=== PATIENT | male | born 1940 | race Caucasian/White ===

== ENCOUNTER 2020-07-26 08:37 | Inpatient (IN) | payer MEDICARE, OTHER ==
[~2020-07-26] VITALS: Ht 170.2 cm; Wt 84.4 kg
[2020-07-26] MEDS ORDERED: MAGNESIUM HYDROXIDE 30 ML UDC PO PRN (14:30)
[2020-07-26] MEDS ORDERED: MAG HYDROX/AL HYDROX/SIMETH 30 ML UDC PO PRN (14:30)
[2020-07-26] MEDS ORDERED: ACETAMINOPHEN 325 MG TABLET PO PRN (14:30)
[2020-07-26] MEDS ORDERED: MULT-447 PO (14:43)
[2020-07-26] MEDS ORDERED: METO25TA3 PO (14:43)
[2020-07-26] MEDS ORDERED: FOLI0.4T6 PO (14:43)
[2020-07-26] MEDS ORDERED: VALS320T16 PO (14:43)
[2020-07-26] MEDS ORDERED: THIA100T88 PO (14:43)
[2020-07-26] MEDS ORDERED: SIMV-49 PO (14:43)
[2020-07-26] MEDS ORDERED: OMEP20CA15 PO (14:43)
[2020-07-26 15:48] VITALS: BP 146/79
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
[2020-07-26 16:00] VITALS: BP 146/79
[2020-07-26] MEDS ORDERED: BLOOD SUGAR DIAGNOSTIC 1 EACH STRIP IN ONE (16:30)
[2020-07-26] MEDS: SIMVASTATIN 20 MG TABLET PO SCH (17:13)
[2020-07-26 20:04] VITALS: BP 138/70
[2020-07-27 07:23] LABS: CHOLESTEROL 132 mg/dL (<200); HDL CHOLESTEROL 32 mg/dL (40-60); LDL 82 mg/dL (0-99); TRIGLYCERIDES 107 mg/dL (30-150)
[2020-07-27 07:29] LABS: ALBUMIN 3.1 g/dL (3.4-5.0); BILIRUBIN,TOTAL 0.6 mg/dL (0.2-1.0); CALCIUM, SERUM 9.4 mg/dL (8.5-10.1); CREATININE 0.9 mg/dL (0.6-1.3); POTASSIUM 3.6 mmol/L (3.5-5.1); TOTAL PROTEIN, SERUM 6.3 g/dL (6.4-8.2)
[2020-07-27 08:00] VITALS: BP 135/70
[2020-07-27] MEDS: PANTOPRAZOLE 40 MG TABLET.DR PO SCH (08:51)
[2020-07-27] MEDS: FOLIC ACID 1 MG TABLET PO SCH (08:51)
[2020-07-27] MEDS: THIAMINE HCL 100 MG TABLET PO SCH (08:51)
[2020-07-27] MEDS: MULTIVIT W/MINERALS 1 TAB TABLET PO SCH (08:51)
[2020-07-27] MEDS: METOPROLOL SUCCINATE 25 MG TAB.SR.24H PO SCH (08:52)
[2020-07-27] MEDS: VALSARTAN 80 MG TABLET PO SCH (08:53)
[2020-07-27 16:00] VITALS: BP 123/61
--- NOTE | 2020-07-27 16:25 | NUR ---
Family Contact: SW called the pts daughterSailaja ([phone]), but was informed that the SW needed a meeting code to get through.
--- NOTE | 2020-07-27 16:34 | NUR ---
Initial Discharge Plan: Pt currently resides in his apartment alone located at [address] [place] [address], [address] [facility], [place] [address]; ([phone]). Per pt, he would like to return home. SW will work with the pt and the pts MD regarding appropriate discharge planning. SW will form a safe and proper discharge.
[2020-07-27] MEDS: SIMVASTATIN 20 MG TABLET PO SCH (17:00)
--- NOTE | 2020-07-27 17:16 | NUR ---
RN NOTES PATIENT ACCIDENTALLY DROPPED ZOC[employer] TO THE FLOOR. PULLED ANOTHER SET FROM [employer].
--- NOTE | 2020-07-27 17:59 | NUR ---
RN NOTES PATIENT RESTING COMFORTABLY AFTER EATING DINNER. CALM AND COOPERATIVE, COMPLIANT WITH ALL MEDICATIONS FOR DAYSHIFT. NO OTHER SIGNIFICANT CHANGE IN CONDITION. ALL NEEDS MET AT THIS TIME
[2020-07-27 20:39] VITALS: BP 114/49
[2020-07-27] MEDS: SERTRALINE HCL 50 MG TABLET PO SCH (22:54)
[2020-07-28 08:00] VITALS: BP 149/74
[2020-07-28] MEDS: THIAMINE HCL 100 MG TABLET PO SCH (08:38)
[2020-07-28] MEDS: FOLIC ACID 1 MG TABLET PO SCH (08:38)
[2020-07-28] MEDS: PANTOPRAZOLE 40 MG TABLET.DR PO SCH (08:38)
[2020-07-28] MEDS: MULTIVIT W/MINERALS 1 TAB TABLET PO SCH (08:38)
[2020-07-28] MEDS: SERTRALINE HCL 50 MG TABLET PO SCH (08:38)
[2020-07-28] MEDS: METOPROLOL SUCCINATE 25 MG TAB.SR.24H PO SCH (08:38)
[2020-07-28] MEDS: VALSARTAN 80 MG TABLET PO SCH (08:39)
[2020-07-28 16:00] VITALS: BP 148/73
[2020-07-28] MEDS: SIMVASTATIN 20 MG TABLET PO SCH (17:31)
[2020-07-29 03:53] VITALS: BP 107/58
[2020-07-29 04:34] VITALS: BP 107/58
[2020-07-29 04:35] VITALS: BP 107/58
[2020-07-29 08:00] VITALS: BP 156/74
[2020-07-29] MEDS: MULTIVIT W/MINERALS 1 TAB TABLET PO SCH (09:09)
[2020-07-29] MEDS: VALSARTAN 80 MG TABLET PO SCH (09:09)
[2020-07-29] MEDS: METOPROLOL SUCCINATE 25 MG TAB.SR.24H PO SCH (09:09)
[2020-07-29] MEDS: THIAMINE HCL 100 MG TABLET PO SCH (09:09)
[2020-07-29] MEDS: FOLIC ACID 1 MG TABLET PO SCH (09:09)
[2020-07-29] MEDS: SERTRALINE HCL 50 MG TABLET PO SCH (09:10)
[2020-07-29] MEDS: PANTOPRAZOLE 40 MG TABLET.DR PO SCH (09:10)
--- NOTE | 2020-07-29 10:51 | NUR ---
Family Contact: JUSTIN called the pts daughter, Sailaja ([phone]), and informed her about the pts current conditions. JUSTIN stated that the discharge plan for the pt is a [facility] facility and she stated that she agrees with this plan. JUSTIN stated that she will try to have one secured by Monday and will call her when there is an update.
[2020-07-29 16:00] VITALS: BP 102/59
--- NOTE | 2020-07-29 16:34 | NUR ---
WALKING ABOUT UNIT,PLEASANT,NO BEHAVIOR ISSUES.
[2020-07-29] MEDS: SIMVASTATIN 20 MG TABLET PO SCH (17:27)
[2020-07-29 20:00] VITALS: BP 134/72
[2020-07-30 08:00] VITALS: BP 142/82
[2020-07-30] MEDS: THIAMINE HCL 100 MG TABLET PO SCH (08:52)
[2020-07-30] MEDS: PANTOPRAZOLE 40 MG TABLET.DR PO SCH (08:52)
[2020-07-30] MEDS: FOLIC ACID 1 MG TABLET PO SCH (08:52)
[2020-07-30] MEDS: MULTIVIT W/MINERALS 1 TAB TABLET PO SCH (08:52)
[2020-07-30] MEDS: VALSARTAN 80 MG TABLET PO SCH (08:53)
[2020-07-30] MEDS: METOPROLOL SUCCINATE 25 MG TAB.SR.24H PO SCH (08:53)
[2020-07-30] MEDS: SERTRALINE HCL 50 MG TABLET PO SCH (08:53)
--- NOTE | 2020-07-30 14:38 | NUR ---
Probable Cause Hearing: Pts [phone] hold was upheld for grave disability.
[2020-07-30 16:00] VITALS: BP 123/61
[2020-07-30] MEDS: SIMVASTATIN 20 MG TABLET PO SCH (18:35)
[2020-07-30 20:32] VITALS: BP 124/61
[2020-07-31] MEDS: VALSARTAN 80 MG TABLET PO SCH (08:12)
[2020-07-31] MEDS: PANTOPRAZOLE 40 MG TABLET.DR PO SCH (08:12)
[2020-07-31] MEDS: METOPROLOL SUCCINATE 25 MG TAB.SR.24H PO SCH (08:12)
[2020-07-31] MEDS: FOLIC ACID 1 MG TABLET PO SCH (08:12)
[2020-07-31] MEDS: MULTIVIT W/MINERALS 1 TAB TABLET PO SCH (08:12)
[2020-07-31] MEDS: THIAMINE HCL 100 MG TABLET PO SCH (08:12)
[2020-07-31] MEDS: SERTRALINE HCL 50 MG TABLET PO SCH (08:14)
[2020-07-31 08:45] VITALS: BP 154/69
--- NOTE | 2020-07-31 09:10 | NUR ---
SNF Referral: SW faxed a SNF referral to the following two facilities: [facility] with attn to [place] to the fax number: [phone] [facility] with attn to April to the fax number: [phone]
--- NOTE | 2020-07-31 09:19 | NUR ---
Family Contact: SW called the pts daughter, Sailaja ([phone]), and informed her of the probable cause hearing results the previous day and informed her of the placement options that are being secured. JUSTIN informed her that she will call back once there is information on an accepting facility.
--- NOTE | 2020-07-31 13:24 | NUR ---
John Murguia NP came in the unit and checked the advance directives and said it's DNR/DNI and gave verbal order to put the order. Addendum: 07/31/20 at 1325 by SHERI BLANTON RN not for this pt.
[2020-07-31 16:09] VITALS: BP 118/70
[2020-07-31] MEDS: SIMVASTATIN 20 MG TABLET PO SCH (17:04)
[2020-07-31 20:02] VITALS: BP 146/82
[2020-07-31 20:06] VITALS: BP 146/82
--- NOTE | 2020-07-31 23:50 | NUR ---
RN NOTE PATIENT NOTED TO BE CALM, COOPERATIVE & RELAXED. SLEEPING AT THIS TIME. NO BEHAVIOR EPISODES NOTED. WILL CONTINUE TO MONITOR.
[2020-08-01 08:30] VITALS: BP 120/71
[2020-08-01] MEDS: THIAMINE HCL 100 MG TABLET PO SCH (08:30)
[2020-08-01] MEDS: MULTIVIT W/MINERALS 1 TAB TABLET PO SCH (08:30)
[2020-08-01] MEDS: FOLIC ACID 1 MG TABLET PO SCH (08:30)
[2020-08-01] MEDS: PANTOPRAZOLE 40 MG TABLET.DR PO SCH (08:30)
[2020-08-01] MEDS: METOPROLOL SUCCINATE 25 MG TAB.SR.24H PO SCH (08:32)
[2020-08-01] MEDS: SERTRALINE HCL 50 MG TABLET PO SCH (08:32)
[2020-08-01] MEDS: VALSARTAN 80 MG TABLET PO SCH (08:33)
[2020-08-01 16:00] VITALS: BP 118/61
[2020-08-01] MEDS: SIMVASTATIN 20 MG TABLET PO SCH (17:27)
[2020-08-01 20:00] VITALS: BP 122/57
[2020-08-01 20:38] VITALS: BP 122/57
[2020-08-02 08:00] VITALS: BP 138/66
[2020-08-02] MEDS: METOPROLOL SUCCINATE 25 MG TAB.SR.24H PO SCH (09:30)
[2020-08-02] MEDS: VALSARTAN 80 MG TABLET PO SCH (09:30)
[2020-08-02] MEDS: THIAMINE HCL 100 MG TABLET PO SCH (09:30)
[2020-08-02] MEDS: FOLIC ACID 1 MG TABLET PO SCH (09:30)
[2020-08-02] MEDS: PANTOPRAZOLE 40 MG TABLET.DR PO SCH (09:30)
[2020-08-02] MEDS: MULTIVIT W/MINERALS 1 TAB TABLET PO SCH (09:31)
[2020-08-02] MEDS: SERTRALINE HCL 50 MG TABLET PO SCH (09:31)
[2020-08-02 16:00] VITALS: BP 123/67
[2020-08-02] MEDS: SIMVASTATIN 20 MG TABLET PO SCH (17:37)
[2020-08-02 21:27] VITALS: BP 129/62
--- NOTE | 2020-08-03 00:43 | NUR ---
Patient refused skin assessment.
[2020-08-03 08:00] VITALS: BP 125/85
[2020-08-03] MEDS: METOPROLOL SUCCINATE 25 MG TAB.SR.24H PO SCH (08:52)
[2020-08-03] MEDS: PANTOPRAZOLE 40 MG TABLET.DR PO SCH (08:52)
[2020-08-03] MEDS: SERTRALINE HCL 50 MG TABLET PO SCH (08:52)
[2020-08-03] MEDS: FOLIC ACID 1 MG TABLET PO SCH (08:53)
[2020-08-03] MEDS: VALSARTAN 80 MG TABLET PO SCH (08:53)
[2020-08-03] MEDS: MULTIVIT W/MINERALS 1 TAB TABLET PO SCH (08:53)
[2020-08-03] MEDS: THIAMINE HCL 100 MG TABLET PO SCH (08:53)
[2020-08-03 16:00] VITALS: BP 123/57
--- NOTE | 2020-08-03 16:39 | NUR ---
Individual Therapy: SW met with pt. in activity room to conduct individual therapy regarding Positive Coping Mechanisms. Patient stated during stressful situations he tries not to "let it get that far". SW educated pt. regarding postiive coping mechanisms and patient was receptive. SW will continue to provide individual therapy as needed.
[2020-08-03] MEDS: SIMVASTATIN 20 MG TABLET PO SCH (16:48)
[2020-08-03 20:27] VITALS: BP 131/60
[2020-08-04 08:00] VITALS: BP 136/49
[2020-08-04] MEDS: PANTOPRAZOLE 40 MG TABLET.DR PO SCH (08:41)
[2020-08-04] MEDS: VALSARTAN 80 MG TABLET PO SCH (08:41)
[2020-08-04] MEDS: THIAMINE HCL 100 MG TABLET PO SCH (08:41)
[2020-08-04] MEDS: METOPROLOL SUCCINATE 25 MG TAB.SR.24H PO SCH (08:42)
[2020-08-04] MEDS: SERTRALINE HCL 50 MG TABLET PO SCH (08:42)
[2020-08-04] MEDS: MULTIVIT W/MINERALS 1 TAB TABLET PO SCH (08:42)
[2020-08-04] MEDS: FOLIC ACID 1 MG TABLET PO SCH (08:42)
[2020-08-04 16:00] VITALS: BP 140/57
[2020-08-04] MEDS: SIMVASTATIN 20 MG TABLET PO SCH (17:05)
[2020-08-04 20:11] VITALS: BP 129/58
[2020-08-05 08:00] VITALS: BP 125/68
[2020-08-05] MEDS: PANTOPRAZOLE 40 MG TABLET.DR PO SCH (08:02)
[2020-08-05] MEDS: MULTIVIT W/MINERALS 1 TAB TABLET PO SCH (08:17)
[2020-08-05] MEDS: THIAMINE HCL 100 MG TABLET PO SCH (08:17)
[2020-08-05] MEDS: SERTRALINE HCL 50 MG TABLET PO SCH (08:17)
[2020-08-05] MEDS: FOLIC ACID 1 MG TABLET PO SCH (08:17)
[2020-08-05] MEDS: METOPROLOL SUCCINATE 25 MG TAB.SR.24H PO SCH (08:18)
[2020-08-05] MEDS: VALSARTAN 80 MG TABLET PO SCH (08:19)
[2020-08-05 16:00] VITALS: BP 148/60
[2020-08-05] MEDS: SIMVASTATIN 20 MG TABLET PO SCH (17:12)
[2020-08-05 20:42] VITALS: BP 140/74
[2020-08-05] MEDS: TEMAZEPAM 7.5 MG CAPSULE PO PRN (21:46)
[2020-08-06 08:00] VITALS: BP 139/65
[2020-08-06] MEDS: PANTOPRAZOLE 40 MG TABLET.DR PO SCH (08:13)
[2020-08-06] MEDS: VALSARTAN 80 MG TABLET PO SCH (08:19)
[2020-08-06] MEDS: FOLIC ACID 1 MG TABLET PO SCH (08:20)
[2020-08-06] MEDS: MULTIVIT W/MINERALS 1 TAB TABLET PO SCH (08:20)
[2020-08-06] MEDS: THIAMINE HCL 100 MG TABLET PO SCH (08:20)
[2020-08-06] MEDS: SERTRALINE HCL 50 MG TABLET PO SCH (08:20)
[2020-08-06] MEDS: METOPROLOL SUCCINATE 25 MG TAB.SR.24H PO SCH (08:21)
[2020-08-06 16:00] VITALS: BP 126/60
[2020-08-06] MEDS: SIMVASTATIN 20 MG TABLET PO SCH (17:04)
[2020-08-06] MEDS: LORAZEPAM 0.5 MG TABLET PO PRN (19:58)
[2020-08-06 20:04] VITALS: BP 116/52
[2020-08-06] MEDS: TEMAZEPAM 7.5 MG CAPSULE PO PRN (21:42)
[2020-08-07 08:00] VITALS: BP 125/64
[2020-08-07] MEDS: THIAMINE HCL 100 MG TABLET PO SCH (08:14)
[2020-08-07] MEDS: PANTOPRAZOLE 40 MG TABLET.DR PO SCH (08:14)
[2020-08-07] MEDS: MULTIVIT W/MINERALS 1 TAB TABLET PO SCH (08:14)
[2020-08-07] MEDS: FOLIC ACID 1 MG TABLET PO SCH (08:15)
[2020-08-07] MEDS: METOPROLOL SUCCINATE 25 MG TAB.SR.24H PO SCH (08:15)
[2020-08-07] MEDS: SERTRALINE HCL 50 MG TABLET PO SCH (08:15)
[2020-08-07] MEDS: VALSARTAN 80 MG TABLET PO SCH (08:16)
--- NOTE | 2020-08-07 14:30 | NUR ---
Phone call: JUSTIN spoke to [facility] (Admissions -[phone]) SNF via phone at 1430 pm verifying pt's acceptance at facility once medically discharged from the hospital . Per [place] pt is accepted at the the facility.
[2020-08-07 16:00] VITALS: BP 118/65
[2020-08-07] MEDS: SIMVASTATIN 20 MG TABLET PO SCH (17:23)
[2020-08-07 20:18] VITALS: BP 125/67
[2020-08-07] MEDS: TEMAZEPAM 7.5 MG CAPSULE PO PRN (21:09)
--- NOTE | 2020-08-07 21:09 | NUR ---
NURSES NOTES: PATIENT REQUESTED FOR SLEEPING MEDICATION. RESTORIL GIVEN ORDERED. WILL MONITOR PATIENT AND HIS SLEEPING PATTERN.
[2020-08-08 08:00] VITALS: BP 130/73
[2020-08-08] MEDS: PANTOPRAZOLE 40 MG TABLET.DR PO SCH (08:20)
[2020-08-08] MEDS: VALSARTAN 80 MG TABLET PO SCH (08:21)
[2020-08-08] MEDS: MULTIVIT W/MINERALS 1 TAB TABLET PO SCH (08:21)
[2020-08-08] MEDS: THIAMINE HCL 100 MG TABLET PO SCH (08:21)
[2020-08-08] MEDS: FOLIC ACID 1 MG TABLET PO SCH (08:21)
[2020-08-08] MEDS: SERTRALINE HCL 50 MG TABLET PO SCH (08:21)
[2020-08-08] MEDS: METOPROLOL SUCCINATE 25 MG TAB.SR.24H PO SCH (08:22)
[2020-08-08 16:00] VITALS: BP 113/59
[2020-08-08] MEDS: SIMVASTATIN 20 MG TABLET PO SCH (18:18)
[2020-08-08 20:03] VITALS: BP 105/59
[2020-08-09] MEDS: PANTOPRAZOLE 40 MG TABLET.DR PO SCH (07:44)
[2020-08-09 08:00] VITALS: BP 128/65
[2020-08-09] MEDS: MULTIVIT W/MINERALS 1 TAB TABLET PO SCH (08:40)
[2020-08-09] MEDS: SERTRALINE HCL 50 MG TABLET PO SCH (08:41)
[2020-08-09] MEDS: VALSARTAN 80 MG TABLET PO SCH (08:42)
[2020-08-09] MEDS: THIAMINE HCL 100 MG TABLET PO SCH (08:42)
[2020-08-09] MEDS: METOPROLOL SUCCINATE 25 MG TAB.SR.24H PO SCH (08:42)
[2020-08-09] MEDS: FOLIC ACID 1 MG TABLET PO SCH (08:43)
[2020-08-09 16:00] VITALS: BP 109/54
[2020-08-09] MEDS: SIMVASTATIN 20 MG TABLET PO SCH (17:01)
[2020-08-09 20:51] VITALS: BP 127/65
[2020-08-09] MEDS: TEMAZEPAM 7.5 MG CAPSULE PO PRN (21:24)
--- NOTE | 2020-08-09 21:24 | NUR ---
Pt c/o insomnia. Least restrictive measures ineffective. Restoril 15 mg po given as ordered. Will continue to monitor.
--- NOTE | 2020-08-09 22:28 | NUR ---
Post 1 hr Restoril effective. Pt asleep in bed easy to arouse.
--- NOTE | 2020-08-10 07:04 | NUR ---
GPS RN OPENING NOTES RECEIVED PATIENT AWAKE IN BED, AOX3-4. NO SOB NOTED. NO S/S OF DISTRESS.BREATHING UNLABORED. PT DENIES SI/HI. PT REMAINS CALM AND COOPERATIVE. BED IN LOWEST LOCKED POSITION, HOB ELEVATED, SIDE RAILS UPX2, CALL LIGHT AND TABLE WITHIN REACH. WILL CONTINUE TO MONITOR Q 15 MIN FOR SAFETY, MOOD & BEHAVIOR
[2020-08-10 08:00] VITALS: BP 144/75
[2020-08-10] MEDS: SERTRALINE HCL 50 MG TABLET PO SCH (08:56)
[2020-08-10] MEDS: VALSARTAN 80 MG TABLET PO SCH (08:57)
[2020-08-10] MEDS: MULTIVIT W/MINERALS 1 TAB TABLET PO SCH (08:57)
[2020-08-10] MEDS: METOPROLOL SUCCINATE 25 MG TAB.SR.24H PO SCH (08:58)
[2020-08-10] MEDS: PANTOPRAZOLE 40 MG TABLET.DR PO SCH (08:59)
[2020-08-10] MEDS: THIAMINE HCL 100 MG TABLET PO SCH (08:59)
[2020-08-10] MEDS: FOLIC ACID 1 MG TABLET PO SCH (09:00)
--- NOTE | 2020-08-10 14:49 | NUR ---
Family Contact: SW called the pts daughter, Sailaja ([phone]), and discussed the pts current treatment plan and stated that the pt was accepted to a SNF but there is no discharge date at this time. Pts daughter stated that she is going away for a bit and that she can be reached at her partner's phone, Alexander ([phone]), because he has better entry level receptionist. SW stated that she will keep them updated.
[2020-08-10 16:00] VITALS: BP 131/61
--- NOTE | 2020-08-10 16:05 | NUR ---
SNF Contact: faxed updated notes to [facility] with attn to [place] to the fax number: [phone]
[2020-08-10] MEDS: SIMVASTATIN 20 MG TABLET PO SCH (17:02)
--- NOTE | 2020-08-10 18:57 | NUR ---
GPS RN CLOSING NOTES PT IN DINNING ROOM WATCHING TV AT THIS TIME. PT REMAINED STABLE THROUGH OUT SHIFT. ALL CARE, NEEDS, MEDICATIONS AND TREATMENT ADMINISTERED ANTICIPATED PER ORDER. WILL ENDORSE TO TANK FILLER NURSE TO CONTINUE TO MONITOR Q 15 MIN FOR SAFETY, MOOD & BEHAVIOR
[2020-08-10 21:31] VITALS: BP 126/61
[2020-08-10] MEDS: TEMAZEPAM 7.5 MG CAPSULE PO PRN (21:37)
[2020-08-10] MEDS: LORAZEPAM 0.5 MG TABLET PO PRN (21:37)
[2020-08-11 08:00] VITALS: BP 129/68
[2020-08-11] MEDS: FOLIC ACID 1 MG TABLET PO SCH (08:35)
[2020-08-11] MEDS: PANTOPRAZOLE 40 MG TABLET.DR PO SCH (08:35)
[2020-08-11] MEDS: SERTRALINE HCL 50 MG TABLET PO SCH (08:36)
[2020-08-11] MEDS: THIAMINE HCL 100 MG TABLET PO SCH (08:36)
[2020-08-11] MEDS: MULTIVIT W/MINERALS 1 TAB TABLET PO SCH (08:36)
[2020-08-11] MEDS: METOPROLOL SUCCINATE 25 MG TAB.SR.24H PO SCH (08:37)
[2020-08-11 08:38] VITALS: BP 129/68
[2020-08-11] MEDS: VALSARTAN 80 MG TABLET PO SCH (08:38)
--- NOTE | 2020-08-11 10:15 | NUR ---
Family Contact: SW called the pts daughter, Sailaja ([phone]), and left a voicemail stating that the pt was discharged to [facility].
--- NOTE | 2020-08-11 11:05 | NUR ---
Discharge Note: Pt will be discharged to [facility] ([facility]) located at [address] [place] [address]; . Pt was transported via [facility] (Trip #[id number]) at 1PM. Pts daughter, Sailaja ([phone]), was made aware of the placement. Upon discharge, the pt appeared to be alert and oriented x4 (time, place, self and situation). Pt appeared to be in a euthymic mood and presented with a calm mood. Pt denied both suicidal and homicidal ideation as well as auditory and visual hallucinations. Pt is ambulatory with walker assistance and appears to be well groomed. Pt will continue to be under the care of her psychiatrist, Dr. Chavis, located at [address] [place] [address]; and application development project manager, Dr. Madison, located at [address] [facility] [address], [place] [address]; . The choice of vendor and multidisciplinary exit care form were done, printed, signed, and given to the patient.
--- NOTE | 2020-08-11 13:09 | NUR ---
GPS RN NOTE: PATIENT 79 Y/O MALE discharged to [facility] ([facility]) located at [facility] [place] [address]; . Pt was transported via [facility] (Trip #[id number]) at 1PM. Pts daughter, Sailaja ([phone]), was made aware of the placement.PATIENT IN STABLE CONDITION NO S/S DISTRESS NOTED PT DENIES SI/HI AVH , DENIES FEELING DEPRESSED,A/O X3-4. AMBULATORY SELF CARE, VSS , SKIN INTACT, SOME DISCOLORATION LEFT ARM.PICTURE PLACED IN THE CHART. EXIT CARE DONE PRINTED SIGN AND GIVEN TO PATIENT. MEDICATIONS RECONCILIATION DONE BOTH MD AWARE AGREED FOR DISCHARGE, WITH ORDER CONTINUE MEDICATIONS. REPORT GIVEN TO YENNY NEAL IN SNF. ALL BELONGINGS RETURNED TO PT.
== END 2020-08-11 13:00 | DRG 881 ==
LOC: GPS 13:49
PROVIDERS: ADMIT Psychiatry & Neurology Psychiatry; ATTEND Student in an Organized Health Care Education/Training Program
DX: F32.9 Major depressive disorder, single episode, unspecified (principal); N17.0 Acute kidney failure with tubular necrosis; R45.851 Suicidal ideations; E44.1 Mild protein-calorie malnutrition; F29 Unspecified psychosis not due to a substance or known physiological condition; F41.9 Anxiety disorder, unspecified; I10 Essential (primary) hypertension; Z73.6 Limitation of activities due to disability; E78.5 Hyperlipidemia, unspecified; F03.90 Unspecified dementia, unspecified severity, without behavioral disturbance, psychotic disturbance, mood disturbance, and anxiety; R27.8 Other lack of coordination; R53.1 Weakness; Z91.81 History of falling
CPT/HCPCS: 36415; 80053-TC; 80061-TC; 82962-TC; 87081-TC; 97112-TC; 97116-TC; 97530-TC